=== PATIENT | male | born 1955 | race Caucasian/White ===

== ENCOUNTER 2019-11-21 20:34 | Inpatient (IN) | payer BC, OTHER ==
[~2019-11-21] VITALS: Ht 177.8 cm; Wt 100.2 kg
[2019-11-21 20:42] VITALS: BP 142/99
[2019-11-21] MEDS ORDERED: PHENYTOIN SODI100 M3 PO (20:44)
[2019-11-21 21:52] LABS: URINE BLOOD 3+ (Negative); URINE CLARITY CLOUDY; URINE COLOR DARK YELLOW; URINE GLUCOSE-RANDOM NEGATIVE (Negative); URINE KETONES NEGATIVE (Negative); URINE LEUKOCYTES-REFLEX NEGATIVE (Negative); URINE PROTEIN 2+ (Negative); URINE SPECIFIC GRAVITY >= 1.030 (1.005-1.030)
[2019-11-21 21:55] LABS: URINE BILIRUBIN 1+ (Negative); URINE NITRITE-REFLEX POSITIVE (Negative)
[2019-11-21 22:00] LABS: SQUAMOUS 4-10 Moderate /LPF (0-3); URINE WBC-REFLEX >25 Many /HPF (0-5); WBC CLUMPS Few (None Seen)
[2019-11-21 22:01] LABS: BACTERIA-REFLEX >30 Many /HPF (None Seen); CASTS None Seen /LPF (None Seen); CRYSTALS None Seen /LPF (None Seen); MUCUS 4-6 Moderate strn/LPF (None Seen); URINE RBC 3-10 Few /HPF (0-2)
[2019-11-21 22:07] LABS: HEMOGLOBIN 14.6 gm/dL (14.0-18.0); MCHC 35.7 g/dL (28.0-37.0); MPV 8.4 fl. (7.2-11.1); NUCLEATED RBCS 0 /100WBC; PLATELET COUNT* 325 thou/uL (150-400); RBC 5.06 mil/uL (4.50-6.00); RDW-CV 14.2 % (10.5-14.5); WBC 29.6 thou/uL (4.0-11.0)
[2019-11-21 22:17] LABS: CALCIUM 8.5 mg/dL (8.5-10.1); POTASSIUM 3.8 mmol/L (3.5-5.1)
[2019-11-21 22:22] LABS: ALBUMIN 3.6 g/dL (3.4-5.0); TOTAL BILIRUBIN 0.8 mg/dL (<0.1-1.0); TOTAL PROTEIN 8.9 g/dL (6.4-8.2)
[2019-11-21 23:04] LABS: ABSOLUTE LYMPHOCYTES 0.6 thou/uL (0.8-5.3); ABSOLUTE MONOCYTES 0.6 thou/uL (0.0-1.2); ABSOLUTE NEUTROPHILS 28.4 thou/uL (1.6-8.1); PLATELET ESTIMATE ADEQUATE
--- NOTE | 2019-11-22 02:25 | NUR ---
RECIEVED REPORT AND ASSUMED CARE OF PT.
[2019-11-22 02:30] VITALS: BP 152/95
--- NOTE | 2019-11-22 05:33 | NUR ---
PT ADMITTED AT 0230 FOR UTI. PT BOARDING IN ED UNTIL ROOM AVAILABLE ON FLOOR. PT GIVEN PRN TYLENOL FOR BACK PAIN WITH GOOD RESULTS. CALL LIGHT IN REACH, PT DEMONSTRATES PROPER USE. IV FLUIDS INFUSING, IV ANTIBIOTICS STARTED. VITAL SIGNS WITHIN NORMAL LIMITS, WILL CONTINUE PLAN OF CARE.
[2019-11-22 07:56] VITALS: BP 179/105
[2019-11-22 09:53] VITALS: BP 141/83
[2019-11-22 16:00] VITALS: BP 103/72
--- NOTE | 2019-11-22 18:58 | NUR ---
PATIENT ARRIVED TO UNIT AT 0800. ALERT AND ORIENTED X4. ASSESSMENT COMPLETED AND CHARTED. VSS ON ROOM AIR. NO COMPLAINTS OF PAIN OR NAUSEA. FLUIDS AND ANTIBIOTICS INFUSED ORDERED. PATIENT UP AD FERNANDA BUT USING URINAL AT BEDSIDE. CALL LIGHT IN REACH. HOURLY ROUNDS COMPLETED. WILL CONTINUE WITH PLAN OF CARE.
[2019-11-22 20:50] VITALS: BP 131/76
[2019-11-23 03:44] LABS: HEMATOCRIT 35.8 % (42.0-52.0); MCH 28.5 pg (26.0-34.0); MCHC 34.9 g/dL (28.0-37.0); MCV 81.6 fL (80.0-100.0); MPV 8.5 fl. (7.2-11.1); RBC 4.39 mil/uL (4.50-6.00); RDW-CV 14.4 % (10.5-14.5); WBC 23.9 thou/uL (4.0-11.0)
[2019-11-23 04:02] LABS: ALBUMIN 2.7 g/dL (3.4-5.0); CALCIUM 8.1 mg/dL (8.5-10.1); CREATININE 1.1 mg/dL (0.6-1.3); MAGNESIUM 1.8 mg/dL (1.8-2.4); POTASSIUM 3.6 mmol/L (3.5-5.1); TOTAL BILIRUBIN 0.6 mg/dL (<0.1-1.0); TOTAL PROTEIN 7.3 g/dL (6.4-8.2)
[2019-11-23 04:07] LABS: HEMOGLOBIN 12.5 gm/dL (14.0-18.0)
--- NOTE | 2019-11-23 06:55 | NUR ---
ASSUMED CARE OF PT 11/22/19 AT APPROX 1930. PT A&OX4, ON ROOM AIR, VSS, IV FLUIDS INFUSING ORDERED. ASSESSMENTS AND HOURLY ROUNDINGS COMPLETED.
[2019-11-23 09:00] VITALS: BP 121/83
--- NOTE | 2019-11-23 16:32 | NUR ---
ASSUMED CARE OF PATIENT AT APPROX 0730. ALERT AND ORIENTED X4. ASSESSMENT COMPLETED AND CHARTED. VSS ON ROOM AIR. NO COMPLAINTS OF PAIN THIS SHIFT. PATIENT HAS SOME NAUSEA AND VOMITING AFTER DRINKING MAG [place] WHICH RESOLVED AFTER VOMITING. FLUIDS AND ANTIBIOTICS INFUSED ORDERED. NO OTHER COMPLAINTS THIS SHIFT. CALL LIGHT IS WITHIN REACH. HOURLY ROUNDS COMPLETED. WILL CONTINUE WITH PLAN OF CARE.
[2019-11-23 16:44] VITALS: BP 141/87
[2019-11-23 21:30] VITALS: BP 136/85
[2019-11-24 04:34] LABS: HEMATOCRIT 37.1 % (42.0-52.0); HEMOGLOBIN 13.1 gm/dL (14.0-18.0); MCH 28.7 pg (26.0-34.0); MCHC 35.4 g/dL (28.0-37.0); MCV 81.1 fL (80.0-100.0); MPV 8.2 fl. (7.2-11.1); RBC 4.57 mil/uL (4.50-6.00); WBC 17.3 thou/uL (4.0-11.0)
--- NOTE | 2019-11-24 04:35 | NUR ---
IV ABX GIVEN ORDERED. PRN DULCOLAX GIVEN PER PT REQUEST. UP INDEPENDENTLY IN THE ROOM. NO C/O PAIN, N/V. PT SLEEPING/RESTING THROUGH THE NIGHT. NO OTHER CONCERNS AT THIS TIME. WILL CONTINUE TO MONITOR.
[2019-11-24 05:03] LABS: ALBUMIN 2.8 g/dL (3.4-5.0); CALCIUM 8.2 mg/dL (8.5-10.1); CREATININE 0.9 mg/dL (0.6-1.3); POTASSIUM 3.6 mmol/L (3.5-5.1); TOTAL BILIRUBIN 0.4 mg/dL (<0.1-1.0); TOTAL PROTEIN 7.7 g/dL (6.4-8.2)
[2019-11-24 07:10] VITALS: BP 154/102
--- NOTE | 2019-11-24 15:27 | NUR ---
PT.LIVES WITH HIS . IS INDEPENDENT AT HOME. NO USE OF DME OR HX OF HH. GOAL IS TO GO HOME AT DISCHARGE.
--- NOTE | 2019-11-24 16:34 | NUR ---
PT ORDERS RECEIVED AND ACKNOWLEDGED. PT INDICATES UP AD FERNANDA STATUS IN ROOM W/O DIFFICULTY. PT INDICATES NO STAIRS TO ENTER HOME OR INSIDE HOME. PT DENIES ANY CONCERNS WITH DISCHARGE TO HOME. PT DOES NOT FEEL ACUTE PT SERVICES ARE INDICATED AT THIS TIME.
--- NOTE | 2019-11-24 17:45 | NUR ---
pt remained alert and oriented. pt resting in bed. pt up ad yulia in room. pt had bm. fall risk precautions in place. hourly rounding completed. will continue to monitor.
--- NOTE | 2019-11-25 05:03 | NUR ---
ASSUMED PT CARE AT 1930. PT ALERT AND ORIENTED X4, POLITE AND COOPERATIVE WITH CARES. UP INDEPENDENTLY IN ROOM. DENIES PAIN AND N/V. SLEPT WELL OVERNIGHT. IV ABX INFUSED PER NOV. USES CALL LIGHT APPROPRIATELY. HOURLY ROUNDING IN PROGRESS, WILL CONTINUE TO MONIOR.
[2019-11-25 06:00] VITALS: BP 169/90
[2019-11-25 07:38] LABS: HEMATOCRIT 37.5 % (42.0-52.0); HEMOGLOBIN 13.3 gm/dL (14.0-18.0); MCH 28.8 pg (26.0-34.0); MCHC 35.6 g/dL (28.0-37.0); MCV 81.1 fL (80.0-100.0); RBC 4.62 mil/uL (4.50-6.00); RDW-CV 14.1 % (10.5-14.5); WBC 12.8 thou/uL (4.0-11.0)
[2019-11-25 07:52] VITALS: BP 150/99
[2019-11-25 07:59] LABS: ALBUMIN 2.8 g/dL (3.4-5.0); CALCIUM 8.4 mg/dL (8.5-10.1); CREATININE 0.8 mg/dL (0.6-1.3); MAGNESIUM 2.1 mg/dL (1.8-2.4); POTASSIUM 3.8 mmol/L (3.5-5.1); TOTAL BILIRUBIN 0.3 mg/dL (<0.1-1.0); TOTAL PROTEIN 7.9 g/dL (6.4-8.2)
[2019-11-25] MEDS ORDERED: PRINIVIL10 MG PO (10:10)
[2019-11-25] MEDS ORDERED: CIPRO500 M1 PO (10:10)
[2019-11-25 10:30] VITALS: BP 150/99
--- NOTE | 2019-11-25 11:54 | NUR ---
PT DISCHARGED TO HOME SELF CARE. aLL DISCHARGE PAPERWORK REVIEWED WITH THE PT. pRESCRIPTIONS GIVEN. PT HAS ALL BELONGINGINS. RT FA IV REMOVED. NO BLEEDING. PT IS STABLE. PT TRANSPORTED TO PERSONAL VEHICLE VIA W/C ACCOMPANIED BY STAFF.
== END 2019-11-25 11:50 | disposition home or self-care (01) | DRG 690 ==
LOC: M.ERS 20:34 → M.ORTHSURG 11-22 01:02 → M.TBA-ER 11-22 01:02 → M.ORTHSURG 11-22 08:00
PROVIDERS: Internal Medicine; Personal Emergency Response Attendant; ADMIT Internal Medicine
DX: N39.0 Urinary tract infection, site not specified (principal); K59.00 Constipation, unspecified; G40.909 Epilepsy, unspecified, not intractable, without status epilepticus; N40.0 Benign prostatic hyperplasia without lower urinary tract symptoms; K52.9 Noninfective gastroenteritis and colitis, unspecified; R31.0 Gross hematuria; I10 Essential (primary) hypertension; Z84.1 Family history of disorders of kidney and ureter